=== PATIENT | female | born 1965 | race Caucasian/White ===

== ENCOUNTER 2022-09-08 15:17 | Emergency (ER) | payer SELFPAY ==
[2022-09-08 15:43] VITALS: TEMP 98.2; BMI 34.7
[2022-09-08] MEDS ORDERED: predniSONE 20 MG TABLET (UD) PO ONE (16:25)
[2022-09-08] MEDS ORDERED: ALBUTEROL SO4 2.5/IPRATROPIUM 0.5 INH SOL 3 ML VIAL.NEB. NEB ONE (16:31)
[2022-09-08] MEDS ORDERED: predniSONE 20 MG TABLET (UD) ONE (16:31)
[2022-09-08] MEDS: ALBUTEROL SO4 2.5/IPRATROPIUM 0.5 INH SOL 3 ML VIAL.NEB. NEB SCH ×3 (16:36→17:09)
[2022-09-08 17:31] VITALS: BP 110/77; PULSE 110; RESP 19
== END 2022-09-08 17:31 | disposition home or self-care (01) ==
LOC: JER 15:17
PROC: 3E0F7GC Introduction of Other Therapeutic Substance into Respiratory Tract, Via Natural or Artificial Opening (ICD-10-PCS; principal; 2022-09-08)
DX: F41.9 Anxiety disorder, unspecified (principal); J45.901 Unspecified asthma with (acute) exacerbation
CPT/HCPCS: 0241U-QW; 93005; 93010; 99284-25